=== PATIENT | male | born 1990 | race African-American/Black ===

== ENCOUNTER 2017-04-06 15:10 | Emergency (ER) | payer MEDICAID ==
[~2017-04-06] VITALS: Ht 185.4 cm; Wt 115.0 kg
[2017-04-06 15:16] VITALS: BP 130/79
--- NOTE | 2017-04-06 15:39 | NUR ---
PATIENT PRESENTS TO ED WITH C/O LT FACIAL DROOP---PT UNABALE TO RAISE EYEBROW;DENIES NUMBNESS ON LEFT CHEEK;SPEECH FULL AND CLEAR;NO SUPERVISOR LOGGING ASSYMETRY----PT STATRTED SIGNS AND SYMPTOMS AFTER A BUG BITE LAST SUNDAY; HX: DENIES RX: BENADRYL; DENIES N/V/D; SKIN IS PINK/WARM/DRY; AAOX4 WITH EVEN AND STEADY GAIT; LUNGS CLEAR BL; HR EVEN AND REGULAR; PT DENIES ANY FEVER, CP, SOB, OR COUGH AT THIS TIME; PATIENT STATES LT EAR PAIN OF 5/10 AT THIS TIME; VSS; PATIENT POSITIONED FOR COMFORT; HOB ELEVATED; BEDRAILS UP X2; BED DOWN. ER MD MADE AWARE OF PT STATUS.
--- NOTE | 2017-04-06 15:51 | NUR ---
DR ARREDONDO AT EVALUATING AAO PT AT BEDSIDE
[2017-04-06 16:12] VITALS: BP 123/93
--- NOTE | 2017-04-06 16:12 | NUR ---
Patient discharged with v/s stable. Written and verbal after care instructions given and explained. Patient alert, oriented and verbalized understanding of instructions. Ambulatory with steady gait. All questions addressed prior to discharge. ID band removed. Patient advised to follow up with PMD. Rx of ACYCLOVIR, PREDNISONE given. Patient educated on indication of medication including possible reaction and side effects. Opportunity to ask questions provided and answered.
== END 2017-04-06 16:12 | disposition home or self-care (01) ==
LOC: MED 15:10
DX: G51.0 Bell's palsy (principal); F17.210 Nicotine dependence, cigarettes, uncomplicated; F11.10 Opioid abuse, uncomplicated
CPT/HCPCS: 99283

== ENCOUNTER 2017-07-06 10:58 | Emergency (ER) | payer MEDICAID ==
[~2017-07-06] VITALS: Ht 185.4 cm; Wt 117.9 kg
[2017-07-06 11:00] VITALS: BP 141/90
[2017-07-06] MEDS ORDERED: DEXAMETHASONE 10 MG/ML VIAL IVP ONE (11:45)
[2017-07-06] MEDS ORDERED: CLINDAMYCIN 900 MG in DEXTROSE 5% 100 ML IV ONE (11:45)
[2017-07-06] MEDS ORDERED: MORPHINE SULFATE 2 MG/ML SYR IVP ONE (11:45)
[2017-07-06] MEDS ORDERED: ONDANSETRON 4 MG/2 ML VIAL IVP ONE (11:45)
[2017-07-06] MEDS ORDERED: CLINDAMYCIN 900 MG/6 ML VIAL IV ONE (11:56)
[2017-07-06 12:21] LABS: HEMATOCRIT 45.5 % (36-52); HEMOGLOBIN 14.8 g/dL (12.0-18.0); MEAN CORPUSCULAR HEMOGLOBIN 27 pg (27-31); MEAN CORPUSCULAR HGB CONC 33 g/dL (33-37); MEAN CORPUSCULAR VOLUME 83 fL (80-94); PLATELET COUNT (AUTO) 370 K/uL (140-450); RED BLOOD CELL COUNT(AUTO) 5.47 MIL/uL (4.20-6.10); RED CELL DISTRIBUTION WIDTH 13.5 % (11.6-13.7); WHITE BLOOD COUNT (AUTO) 18.7 K/uL (4.8-10.8)
[2017-07-06 12:37] LABS: ANION GAP 13.4 (8-16); CARBON DIOXIDE 30.9 mmol/L (21-32); POTASSIUM 3.3 mmol/L (3.5-5.1)
[2017-07-06 12:41] LABS: ALBUMIN 3.4 g/dL (3.4-5.0); TOTAL BILIRUBIN 0.3 mg/dL (0.0-1.0)
[2017-07-06 12:43] LABS: LYMPHOCYTES % (MANUAL) 11 % (20-46); MONOCYTES % (MANUAL) 8 % (5-12)
[2017-07-06 13:14] VITALS: BP 132/78
== END 2017-07-06 13:15 | disposition home or self-care (01) ==
LOC: MED 10:58
DX: J36 Peritonsillar abscess (principal); J45.909 Unspecified asthma, uncomplicated; Z91.018 Allergy to other foods
CPT/HCPCS: 36415; 71045; 80053; 85025; 96365; 96375; 99285; J1100; J2270; J2405; J3490; Q0092

== ENCOUNTER 2024-01-25 09:01 | Emergency (ER) | payer MEDICAID ==
[~2024-01-25] VITALS: Ht 185.4 cm; Wt 111.1 kg
[2024-01-25 09:13] VITALS: BP 141/86; PULSE 98; RESP 15; TEMP 98.7; O2SAT 98
[2024-01-25] MEDS ORDERED: CEPH-588 PO (09:56)
== END 2024-01-25 10:13 | disposition home or self-care (01) ==
LOC: MED 09:01
DX: S40.862A Insect bite (nonvenomous) of left upper arm, initial encounter (principal); L03.114 Cellulitis of left upper limb; J45.909 Unspecified asthma, uncomplicated; Z79.899 Other long term (current) drug therapy; Z91.018 Allergy to other foods; W57.XXXA Bitten or stung by nonvenomous insect and other nonvenomous arthropods, initial encounter; Y92.89 Other specified places as the place of occurrence of the external cause; Y93.89 Activity, other specified; Y99.8 Other external cause status
CPT/HCPCS: 99283